=== PATIENT | male | born 2005 | race Two or more races ===

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

== ENCOUNTER 2024-02-03 19:47 | Emergency (ER) | payer BC, OTHER ==
[2024-02-03] MEDS: Acetaminophen/oxyCODONE 325-5 MG Tab PO ONE (22:04)
[2024-02-03] MEDS: Ibuprofen 600 MG Tab PO ONE (22:04)
== END 2024-02-03 22:22 | disposition home or self-care (01) ==
LOC: JD.ED 19:47
DX: S60.212A Contusion of left wrist, initial encounter (principal); W22.8XXA Striking against or struck by other objects, initial encounter
CPT/HCPCS: 73110; 99283; A9270; 99282